=== PATIENT | male | born 1985 | race Caucasian/White ===

== ENCOUNTER 2017-12-12 20:35 | Emergency (ER) | payer BC ==
--- NOTE | 2017-12-12 20:59 | EDM.PDOC ---
ED HPI GENERAL MEDICAL PROBLEM - General Chief Complaint: Eye Problems Stated Complaint: left eye FB Time Seen by Provider: 12/12/17 20:55 Source of Information: Reports: Patient History Limitations: Reports: No Limitations - History of Present Illness INITIAL COMMENTS - FREE TEXT/NARRATIVE: Giles is a 32 year old male who presents to the Ed with c/o foreign body in his left eye. He reports that he was nailing some stuff earlier today. Did not immedately notice anything getting in his eye. He reports that the past few hours he has had increased discomfort in his left eye. He reports that it is starting to get red and watery. He then proceeded to look in his eye and noticed a small speck of something. He reports he tried to remove it with a Qtip but was unsuccessful. He denies any vision changes. Onset: Today, Gradual Location: Reports: Other (left eye) Associated Symptoms: Reports: No Other Symptoms - Related Data Allergies Allergy/AdvReac Type Severity Reaction Status Date / Time No Known Allergies Allergy Verified 12/12/17 20:40 Home Meds: Home Meds . [No Known Home Meds] 12/12/17 [History] ED ROS GENERAL - Review of Systems Review Of Systems: ROS reveals no pertinent complaints other than HPI. ED EXAM GENERAL W FULL EYE - Physical Exam Exam: See Below Exam Limited By: No Limitations General Appearance: Alert, WD/WN, No Apparent Distress Eye Exam: Left Eye: Conjunctival Injection, Foreign Body, Bilateral Eye: EOMI, Normal Fundi, PERRL Visual Acuity (R) 20/: 20 Visual Acuity (L) 20/: 20 Eyelids: Left: Foreign Body, Bilateral: Normal Appearance Conjunctiva & Sclera: Right: Normal Appearance, Left: Foreign Body, Injected Cornea Exam: Left: Foreign Body Extraocular Movements: Bilateral: Intact Pupils: Normal Accommodation Pupillary Size: Bilateral: 3 mm Pupillary Reaction: Bilateral: Brisk Anterior Chamber: Bilateral: Normal Appearance Posterior Chamber: Bilateral: Normal Funduscopic Course - Vital Signs Last Recorded V/S: Last Vital Signs Temp 98.2 F 12/12/17 20:54 Pulse 99 12/12/17 20:54 Resp 18 12/12/17 20:54 BP 149/80 H 12/12/17 20:54 Pulse Ox 98 12/12/17 20:54 - Orders/Labs/Meds Meds: Medications Discontinued Medications Generic Name Dose Route Start Last Admin Trade Name Omari PRN Reason Stop Dose Admin Erythromycin 1 gm 12/12/17 21:11 12/12/17 21:13 Erythromycin 0.5% Ophth Oint EYELF 12/12/17 21:12 Not Given QID ONE Tetracaine HCl 1 ml 12/12/17 21:11 12/12/17 21:13 Tetracaine 0.5% Steri-Unit Cecilia EYELF 12/12/17 21:12 2 drop ASDIRECTED ONE Administration - Re-Assessments/Exams Free Text/Narrative Re-Assessment/Exam: Visualized foreign body with naked eye to left eye at 4 o'clock position. Tetracaine administered to left eye. Attempted to remove foreign body without success. See nurses note for PMH, PSH, SH, and FH. Departure - Departure Time of Disposition: 20:55 Disposition: Home, Self-Care 01 Condition: Good Clinical Impression: Foreign body in eyeball, left Qualifiers: Encounter type: initial encounter Qualified Code(s): S05.52XA - Penetrating wound with foreign body of left eyeball, initial encounter - Discharge Information Instructions: Eye Foreign Body, [id number] Referrals: Provider,Unknown [Primary Care Provider] - Forms: ED Department Discharge Additional Instructions: Erythromycin ointment to eye four times daily Avoid scratching eye Tylenol or ibuprofen as needed for discomfort Recommend calling Dr. Mckeon's office [facility] in morning for appointment for removal of foreign body
[2017-12-12] MEDS ORDERED: Tetracaine HCl/PF 0.5% 4 ML Bottle EYELF ONE (21:11)
[2017-12-12] MEDS ORDERED: Erythromycin Base 0.5% Ophth Oint 3.5 GM Tube EYELF ONE (21:11)
== END 2017-12-12 20:55 | disposition home or self-care (01) ==
LOC: CC.ED 20:35
DX: T15.82XA Foreign body in other and multiple parts of external eye, left eye, initial encounter (principal); X58.XXXA Exposure to other specified factors, initial encounter
CPT/HCPCS: 99282; A9270